=== PATIENT | female | born 1945 | race Caucasian/White ===

== ENCOUNTER 2023-09-01 01:10 | Inpatient (IN) | payer MEDICARE ==
[~2023-09-01] VITALS: Ht 162.6 cm; Wt 62.8 kg
[2023-09-01] MEDS ORDERED: morphine 2 MG/ML inj. syringe IV ONE (01:25)
[2023-09-01] MEDS ORDERED: nitroGLYCERIN 1gm ointment UD TP ONE (01:25)
[2023-09-01] MEDS ORDERED: ondansetron/PF 4mg/2ml inj IV ONE (01:25)
[2023-09-01] MEDS ORDERED: aspirin 325mg tablet PO ONE (01:25)
[2023-09-01 01:41] LABS: BASOPHILS % (AUTO) 0.3 % (0-1); EOSINOPHILS # (AUTO) 0.2 X10'3 (0-0.9); EOSINOPHILS % (AUTO) 2.5 % (0-6); MONOCYTES # (AUTO) 0.7 X10'3 (0-0.9)
[2023-09-01 01:43] LABS: HEMATOCRIT 36.9 % (35.0-45.0); HEMOGLOBIN 12.6 g/dl (12.0-16.0); LYMPHOCYTES # (AUTO) 0.8 X10'3 (1.1-4.8); MEAN CORPUSCULAR HEMOGLOBIN 31.5 PG (27.0-31.0); MEAN CORPUSCULAR HGB CONC 34.1 g/dL (33.0-36.5); MEAN CORPUSCULAR VOLUME 92.2 FL (78-98); MEAN PLATELET VOLUME 9.2 FL (7.4-10.4); NEUTROPHILS # (AUTO) 4.7 X10'3 (1.8-7.7); NEUTROPHILS % (AUTO) 74.2 % (42-75); PLATELET COUNT 164 X10'3 (140-440); RED BLOOD COUNT 4.01 X10'6 (4.20-5.60); RED CELL DISTRIBUTION WIDTH 13.1 % (11.5-14.5); WHITE BLOOD COUNT 6.3 X10'3 (4.5-11.0)
[2023-09-01] MEDS ORDERED: heparin 10,000 units/1 ML INJ IV ONE (01:50)
[2023-09-01 01:54] LABS: ALANINE AMINOTRANSFERASE 20 U/L (12-78); ALBUMIN 3.5 G/DL (3.4-5.0); ALBUMIN/GLOBULIN RATIO 1.1 (1.1-1.5); ALKALINE PHOSPHATASE 116 IU/L (46-116); ANION GAP 10 (8-16); ASPARTATE AMINO TRANSFERASE 43 U/L (10-37); BILIRUBIN,TOTAL 0.7 MG/DL (0.1-1.0); BLOOD UREA NITROGEN 16 MG/DL (7-18); BUN/CREATININE RATIO 18.2 (10.0-20.0); CALCIUM 9.4 MG/DL (8.5-10.1); CHLORIDE 102 MMOL/L (99-107); CREATININE 0.88 MG/DL (0.40-0.90); GLUCOSE 118 MG/DL (70-104); LIPASE 57 U/L (16-77); SODIUM 137 MMOL/L (135-145); TOTAL CARBON DIOXIDE 24.9 MMOL/L (24-32); TOTAL PROTEIN 6.7 G/DL (6.4-8.2); eCRCL 45 ML/MIN; eGFR 62 ML/MIN
[2023-09-01 02:06] LABS: APTT 28 SECONDS (22-32); D-DIMER 0.72 MG/L FEU (0-0.50)
--- NOTE | 2023-09-01 02:06 | NUR ---
PER PT REQUEST- PLEASE CALL HER FRIEND KELIN. THIS SAMPLER TESTER TRIED TO CONTACT KELIN ON BOTH NUMBERS PROVIDED BY PT BUT WAS UNSUCCESSFUL. WILL GIVE CLINICAL DOCUMENTATION IMPROVEMENT SPECIALIST THE NOTE W/ FRIENDS NUMBERS WRITTEN DOWN. KELIN: [phone] OR [phone]
[2023-09-01 02:07] LABS: POTASSIUM 3.5 MMOL/L (3.5-5.1)
[2023-09-01] MEDS ORDERED: fentaNYL/PF 50MCG/1 ML 2ML syringe ONE (02:14)
[2023-09-01] MEDS ORDERED: midazolam 1 mg/ML 2ml injection ONE (02:14)
[2023-09-01] MEDS ORDERED: LIDOcaine 1% (10mg/ml)w/preservative inj. 20ml MDV ONE (02:14)
[2023-09-01] MEDS ORDERED: iohexol 350MG/ML 100ml bottle IV ONE (02:14)
[2023-09-01] MEDS ORDERED: nitroGLYCERIN 500mcg/5mL D5W 5 ML IV ONE (02:14)
[2023-09-01] MEDS ORDERED: heparin 1,000unit/ml 10ml vial 0 ML ONE (02:14)
[2023-09-01] MEDS ORDERED: verapamil 2.5 mg/ml inj IV ONE (02:15)
[2023-09-01] MEDS ORDERED: iohexol 350 MG/ML 50ML vial IV ONE (02:41)
[2023-09-01 03:30] VITALS: BP 101/48; PULSE 71; RESP 14; TEMP 98.3; O2SAT 92
--- NOTE | 2023-09-01 03:30 | NUR ---
PT ARRIVED TO 3018B FROM SOAP DRIER OPERATOR VIA GURNEY. REPORT RECIEVED, I HAVE ASSUMED CARE OF PT. PERCLOSE TO CATH SITE OF RIGHT GROIN IS CDI AND SOFT NO S/S OF HEMATOMA. PT IS A&O X4, DENIES PAIN. PT EDUCATED ON NEED TO BE FLAT FOR 6 HOURS AND WAS ORIENTED TO THE ROOM AND CALL LIGHT, PT VOICED UNDERSTANDING.
[2023-09-01] MEDS ORDERED: magnesium 2GM in 50ml NS 50 ML IV PRN (06:00)
[2023-09-01] MEDS ORDERED: potassium Cl 20 mEq SR tablet PO PRN ×2 (06:00)
[2023-09-01] MEDS ORDERED: magnesium 4gm in 100ml NS 100 ML IV PRN (06:00)
[2023-09-01] MEDS ORDERED: HYDROcodone/acetaminophen 5mg/325mg tablet PO PRN (06:00)
[2023-09-01] MEDS ORDERED: potassium Cl 40MEQ/1/2NS 520ml 520 ML IV PRN (06:00)
[2023-09-01] MEDS ORDERED: ondansetron/PF 4mg/2ml inj IV PRN (06:00)
[2023-09-01] MEDS ORDERED: morphine 2 MG/ML inj. syringe IV PRN ×2 (06:00)
[2023-09-01] MEDS ORDERED: acetaminophen 325mg tablet PO PRN ×2 (06:00)
[2023-09-01] MEDS ORDERED: normal saline 1000ml 1,000 ML IV SCH (06:00)
[2023-09-01] MEDS ORDERED: HYDROcodone/acetaminophen 10/325mg tab PO PRN (06:00)
[2023-09-01] MEDS ORDERED: magnesium Cl slow-release 64mg tablet PO PRN (06:00)
[2023-09-01 07:00] VITALS: BP 105/50; PULSE 72; RESP 16; TEMP 97.4; O2SAT 97
[2023-09-01] MEDS ORDERED: heparin, porcine 5000 units/ml vial SQ SCH (08:00)
[2023-09-01 11:00] VITALS: BP 116/52; PULSE 68; RESP 13; TEMP 98.1; O2SAT 96
--- NOTE | 2023-09-01 11:15 | NUR ---
Problems reprioritized. Patient report given, questions answered & plan of care reviewed with Rolanda GRAMAJO.
--- NOTE | 2023-09-01 11:16 | NUR ---
Patient in room PCU 3018. I have received report from BIANCA LANDIN and had the opportunity to ask questions and assume patient care. PATIENT IS RESTING IN BED IN NO ACUTE DISTRESS.
--- NOTE | 2023-09-01 12:49 | NUR ---
Problems reprioritized. Patient report given, questions answered & plan of care reviewed with MALU GRAMAJO. PATIENT RESTING IN BED IN NO ACUTE DISTRESS. GROIN SITE CDI INACT SOFT, NO HEMATOMA, OOZING, OR COMLICATIONS NOTED. DISTAL PULSE AND SENSATION IS INTACT. PT STATES SHE IS READY TO GO HOME AFTER ECHO. ECHO HAS BEEN PAGED.
--- NOTE | 2023-09-01 13:57 | NUR ---
PAGER ID: [phone] MESSAGE: [id number], Paresh Ewing. Pt does have home meds, they are in the med rec in the external med list. Do you want to look at those before I finish the discharge? Salma [facility] [id number]
[2023-09-01] MEDS ORDERED: FLEC50TA28 PO (14:29)
[2023-09-01] MEDS ORDERED: CARSR60C PO (14:29)
--- NOTE | 2023-09-01 15:08 | NUR ---
Pt stable for discharge per Dr. Daley and Dr. Bahena. All discharge instructions reviewed with patient and all questions answered, pt verbalized understanding. Dr Bahena said he was going to e-script some pain meds for the patient. PIV discontinued, cannula intact. Tele discontinued. All belongings collected and sent with patient. Wheeled to lobby via nursing staff and picked up by friend.
--- NOTE | 2023-09-01 15:12 | NUR ---
GASTROENTEROLOGY TECHNICIAN documentation: I have reviewed and agree with all interventions, assessments performed and documented by Breann LANDIN.
== END 2023-09-01 14:48 | disposition home or self-care (01) | DRG 392 ==
LOC: ER 01:10 → PCU 3S 03:51 → UNDOADMIN 03:51 → PCU 3S 06:01 → UNDODISIN 14:48
PROVIDERS: ADMIT Internal Medicine Cardiovascular Disease; ATTEND Family Medicine
PROC: 4A023N7 Measurement of Cardiac Sampling and Pressure, Left Heart, Percutaneous Approach (ICD-10-PCS; principal; 2023-09-01)
PROC: B2111ZZ Fluoroscopy of Multiple Coronary Arteries using Low Osmolar Contrast (ICD-10-PCS; 2023-09-01)
PROC: B2151ZZ Fluoroscopy of Left Heart using Low Osmolar Contrast (ICD-10-PCS; 2023-09-01)
PROC: B41F1ZZ Fluoroscopy of Right Lower Extremity Arteries using Low Osmolar Contrast (ICD-10-PCS; 2023-09-01)
DX: K21.9 Gastro-esophageal reflux disease without esophagitis (principal); R07.9 Chest pain, unspecified; I08.3 Combined rheumatic disorders of mitral, aortic and tricuspid valves; Z66 Do not resuscitate; I25.10 Atherosclerotic heart disease of native coronary artery without angina pectoris; E78.5 Hyperlipidemia, unspecified; Z90.49 Acquired absence of other specified parts of digestive tract; Z80.7 Family history of other malignant neoplasms of lymphoid, hematopoietic and related tissues; Z82.0 Family history of epilepsy and other diseases of the nervous system; Z87.891 Personal history of nicotine dependence
CPT/HCPCS: 36415; 71045; 80053; 83690; 83880; 84484; 85025; 85347; 85379; 85610; 85730; 87081; 93306; 93458; 99152; 99285; A6258; C1725; C1760; G0378; J1644; J2250; J3010; J3490; J7030; Q9967